=== PATIENT | female | born 1965 | race Caucasian/White ===

== ENCOUNTER 2017-11-04 07:50 | Day surgery (SDC) | payer OTHER | END 2017-11-04 17:35 | disposition home or self-care (01) | LOC: CIR.AMB 07:50 | DX: M24.541 Contracture, right hand (principal) ==

== ENCOUNTER 2017-11-08 13:59 | Emergency (ER) | payer OTHER ==
[~2017-11-08] VITALS: Ht 152.4 cm; Wt 64.4 kg
[2017-11-08] MEDS ORDERED: COZAAR25 MG PO (14:46)
== END 2017-11-08 16:20 | disposition home or self-care (01) ==
LOC: ER 13:59
DX: M79.644 Pain in right finger(s) (principal); T81.89XS Other complications of procedures, not elsewhere classified, sequela